=== PATIENT | male | born 1950 | race Caucasian/White ===

== ENCOUNTER 2017-01-10 10:18 | Day surgery (SDC) | payer BC ==
[2017-01-09 12:05] VITALS: BP 130/85
[2017-01-09 12:45] LABS: PATH.CAST-FLAG NOT PRESENT; SPERM-FLAG NOT PRESENT; SRC-FLAG NOT PRESENT; XTAL-FLAG NOT PRESENT; YLC-FLAG NOT PRESENT
[~2017-01-10] VITALS: Ht 180.3 cm; Wt 91.0 kg
[~2017-01-10 10:18] MED LIST: ASPI-650 PO; LOSA50TA6 PO; MULT-658 PO; SIMV40TA3 PO
[2017-01-10] MEDS ORDERED: LACTATED RINGERS 1,000 ML IV SCH (10:44)
[2017-01-10] MEDS ORDERED: TAMS-11 PO (10:48)
[2017-01-10] MEDS ORDERED: OXYCONTIN PO (10:48)
[2017-01-10 10:49] VITALS: BP 130/85
[2017-01-10] MEDS ORDERED: LIDOCAINE 1%, 2ML SQ PRN (11:00)
[2017-01-10] MEDS ORDERED: FENTANYL PF 250 MCG/5ML ONE (12:58)
[2017-01-10] MEDS ORDERED: MIDAZOLAM 1 MG/ML, 2ML ONE (12:58)
[2017-01-10] MEDS ORDERED: OMNIPAQUE 350 MG/ML, 50 ML BOTTLE ONE (13:00)
[2017-01-10] MEDS ORDERED: CIPROFLOXACIN/PMX 400MG/200ML 200 ML ONE (13:30)
[2017-01-10] MEDS ORDERED: ONDANSETRON 2MG/ML, 2ML IVPush PRN (14:00)
[2017-01-10] MEDS ORDERED: PROMETHAZINE 25 MG/ML, 1ML IV PRN (14:00)
[2017-01-10] MEDS ORDERED: OXYcodone 5 MG/5 ML ORAL.SOL UDC PO PRN (14:00)
[2017-01-10] MEDS ORDERED: FENTANYL PF 100 MCG/2ML IV PRN (14:00)
[2017-01-10] MEDS ORDERED: ALBUTEROL/IPRATROPIUM 2.5MG/0.5MG, 3 ML NPPB PRN (14:00)
[2017-01-10] MEDS ORDERED: MEPERIDINE/PF 25MG/0.5ML IVPush PRN (14:00)
[2017-01-10] MEDS ORDERED: HYDROmorphone 1 MG/ML, 1ML IV PRN (14:00)
[2017-01-10] MEDS ORDERED: ACETAMINOPHEN 325 MG TABLET PO PRN (14:00)
[2017-01-10] MEDS ORDERED: MIDAZOLAM 1 MG/ML, 2ML IV PRN (14:00)
[2017-01-10] MEDS ORDERED: hydrALAzine 20 MG/ML, 1ML IV PRN (14:00)
[2017-01-10] MEDS ORDERED: LABETALOL 5MG/ML, 20ML IV PRN (14:00)
[2017-01-10] MEDS ORDERED: ONDANSETRON 2MG/ML, 2ML ONE (15:21)
[2017-01-10] MEDS ORDERED: PROPOFOL 10 MG/ML, 20ML ONE (15:21)
[2017-01-10] MEDS ORDERED: DEXAMETHASONE 4 MG/ML, 1ML ONE (15:21)
== END 2017-01-10 15:25 ==
LOC: OUT 10:18
PROVIDERS: ATTEND Urology
DX: N20.1 Calculus of ureter (principal); I10 Essential (primary) hypertension; E78.5 Hyperlipidemia, unspecified; F17.200 Nicotine dependence, unspecified, uncomplicated; Z72.89 Other problems related to lifestyle; Z86.73 Personal history of transient ischemic attack (TIA), and cerebral infarction without residual deficits; Z79.82 Long term (current) use of aspirin; Z88.8 Allergy status to other drugs, medicaments and biological substances
CPT/HCPCS: 52356; 74000; 76001; 81001; 87086; 88300; 93005; C1726; C1758; C1769; C2617; J0744; J1100; J2250; J2405; J2704; J3010; J3490; J7120; Q9967

== ENCOUNTER 2019-04-21 12:09 | Day surgery (SDC) | payer MEDICARE, BC ==
[~2019-04-21] VITALS: Ht 177.8 cm; Wt 85.9 kg
[~2019-04-21 12:09] MED LIST changes: +LOSA50TA14 PO; -LOSA50TA6 PO; +OXYCONTIN PO; +TAMS-11 PO
[2019-04-21] MEDS ORDERED: LACTATED RINGERS 1,000 ML IV SCH (12:59)
[2019-04-21] MEDS ORDERED: ACET325C6 PO (13:06)
[2019-04-21] MEDS ORDERED: SUCR1TAB33 PO (13:06)
[2019-04-21] MEDS ORDERED: PANT40GR PO (13:06)
[2019-04-21] MEDS ORDERED: ALPR0.5T PO (13:06)
[2019-04-21 13:12] VITALS: BP 118/79
[2019-04-21] MEDS ORDERED: HYDR-3653 PO (13:22)
[2019-04-21 13:54] LABS: ALBUMIN 3.9 g/dL (3.4-5.0); ANION GAP 4 mmol/L (5-15); CHLORIDE 109 mmol/L (98-107)
[2019-04-21 13:58] LABS: ALANINE AMINOTRANSFERASE 20 U/L (12-78); ALKALINE PHOSPHATASE 80 U/L (45-117); BILIRUBIN,TOTAL 0.4 mg/dL (0.2-1.0); CREATININE 0.87 mg/dL (0.7-1.3); TOTAL PROTEIN 7.4 g/dL (6.4-8.2)
[2019-04-21] MEDS ORDERED: PROPOFOL 10 MG/ML, 20ML ONE (14:46)
[2019-04-21] MEDS ORDERED: FENTANYL PF 100 MCG/2ML ONE (15:13)
[2019-04-21] MEDS ORDERED: ACETAMINOPHEN 325 MG TABLET PO PRN (15:30)
[2019-04-21] MEDS ORDERED: OXYcodone 5 MG/5 ML ORAL.SOL UDC PO PRN (15:30)
[2019-04-21] MEDS ORDERED: hydrALAzine 20 MG/ML, 1ML IV PRN (15:30)
[2019-04-21] MEDS ORDERED: ONDANSETRON 2MG/ML, 2ML IV PRN (15:30)
[2019-04-21] MEDS ORDERED: METOPROLOL 1 MG/ML, 5ML IV PRN (15:30)
[2019-04-21] MEDS ORDERED: FENTANYL PF 100 MCG/2ML IV PRN (15:30)
[2019-04-21] MEDS ORDERED: MIDAZOLAM 1 MG/ML, 2ML IV PRN (15:30)
== END 2019-04-21 17:55 | disposition home or self-care (01) ==
LOC: OUT 12:09
PROVIDERS: ATTEND Internal Medicine Geriatric Medicine
DX: K22.8 Other specified diseases of esophagus (principal); C16.0 Malignant neoplasm of cardia; C78.7 Secondary malignant neoplasm of liver and intrahepatic bile duct; B37.81 Candidal esophagitis; I10 Essential (primary) hypertension; E78.5 Hyperlipidemia, unspecified; F17.290 Nicotine dependence, other tobacco product, uncomplicated; Z79.82 Long term (current) use of aspirin; Z79.899 Other long term (current) drug therapy; Z72.89 Other problems related to lifestyle; Z86.010 Personal history of colon polyps; Z86.73 Personal history of transient ischemic attack (TIA), and cerebral infarction without residual deficits; Z87.442 Personal history of urinary calculi; Z98.1 Arthrodesis status; Z90.49 Acquired absence of other specified parts of digestive tract; Z98.890 Other specified postprocedural states; Z83.3 Family history of diabetes mellitus; Z82.3 Family history of stroke; Z82.49 Family history of ischemic heart disease and other diseases of the circulatory system
CPT/HCPCS: 36415; 43238; 43239; 80053; 88305; 93005; J2704; J3010; J7120